=== PATIENT | female | born 1995 | race Caucasian/White ===

== ENCOUNTER 2024-02-03 00:06 | Inpatient (IN) | payer BC ==
[2024-02-03] MEDS ORDERED: Water For Irrigation,Sterile 1,000 ML Container IRR PRN (00:29)
[2024-02-03] MEDS ORDERED: Tranexamic Acid IN NACL,ISO-OS 1,000 MG in Premix Bag 1 BAG IV PRN (00:29)
[2024-02-03] MEDS ORDERED: Sodium Chloride 0.9% 2.5 ML Syringe FLUSH PRN (00:29)
[2024-02-03] MEDS ORDERED: Ondansetron 4 MG/2 ML SDV IVPUSH PRN (00:29)
[2024-02-03] MEDS ORDERED: Carboprost Tromethamine 250 MCG/1 mL Vial IM PRN (00:29)
[2024-02-03] MEDS ORDERED: Lidocaine 1% 50 ML MDV INJECT PRN (00:29)
[2024-02-03] MEDS ORDERED: Sodium Chloride 0.9% 10 ML Syringe FLUSH PRN (00:29)
[2024-02-03] MEDS ORDERED: Terbutaline 1 MG/ML SDV SUBCUT PRN (00:29)
[2024-02-03] MEDS ORDERED: Sodium Chloride 0.9% 20 ML SDV IV PRN (00:29)
[2024-02-03] MEDS ORDERED: Methylergonovine 0.2 MG/1 ML Amp IM PRN (00:29)
[2024-02-03] MEDS ORDERED: Misoprostol 200 MCG Tab PO PRN (00:29)
[2024-02-03] MEDS ORDERED: Butorphanol 2 MG/ML SDV IVPUSH PRN (00:29)
[2024-02-03] MEDS ORDERED: Oxytocin/0.9 % Sodium Chloride 30 UNIT/500 ML BAG IV SCH (00:30)
[2024-02-03] MEDS ORDERED: Misoprostol 25 MCG (1/4 of 100 MCG) Tab VAG PRN ×2 (01:00→04:00)
[2024-02-03] MEDS ORDERED: Misoprostol 25 MCG (1/4 of 100 MCG) Tab PO PRN (01:00)
[2024-02-03 01:14] LABS: HEMATOCRIT 38.2 % (37.0-47.0); HEMOGLOBIN 13.4 g/dL (12.0-16.0); MEAN CORPUSCULAR HEMOGLOBIN 32.2 pg (28.0-32.0); MEAN CORPUSCULAR HGB CONC 35.1 g/dL (32.0-36.0); MEAN CORPUSCULAR VOLUME 91.8 fL (83.0-99.0); MEAN PLATELET VOLUME 10.9 fL (9.4-12.3); PLATELET COUNT,PLT 207 K/uL (150-400); RED BLOOD CELL COUNT 4.16 M/uL (4.10-5.30)
[2024-02-03] MEDS ORDERED: Ropivacaine HCl/PF 400 MG in Premix Bag 1 BAG EPIDUR SCH (01:30)
[2024-02-03] MEDS ORDERED: dexmedeTOMIDine HCl 200 MCG/2 ML SDV EPIDUR SCH (01:30)
[2024-02-03] MEDS ORDERED: Phenylephrine HCl In 0.9% NaCl 1 MG/10 ML Syringe IVPUSH PRN (01:30)
[2024-02-03] MEDS ORDERED: ePHEDrine 50 MG/ML SDV IVPUSH PRN (01:30)
[2024-02-03] MEDS: Oxytocin/0.9 % Sodium Chloride 30 UNIT/500 ML BAG IV SCH (01:53)
[2024-02-03] MEDS ORDERED: oxyCODONE 5 MG Tab PO PRN (03:17)
[2024-02-03] MEDS: Ibuprofen 800 MG Tab PO PRN (03:51)
[2024-02-03] MEDS: Acetaminophen 500 MG Tab PO PRN (03:52)
[2024-02-03] MEDS: Witch Hazel Medicated Pads 40/Jar TOP PRN (03:53)
[2024-02-03] MEDS: Benzocaine/Menthol 20%-0.5% Spray 78 GM Cannister TOP PRN (03:53)
[2024-02-03] MEDS: Lanolin 100% Cream 7 GM Tube TOP PRN (03:54)
[2024-02-03] MEDS: Lactated Ringers 1,000 ML IV SCH (03:54)
[2024-02-03] MEDS: Docusate Sodium 100 MG Cap PO PRN (10:46)
[2024-02-03] MEDS: Ropivacaine HCl/PF 200 ML ONE (19:17)
[2024-02-03] MEDS: Phenylephrine HCl In 0.9% NaCl 1 MG/10 ML Syringe ONE (19:17)
[2024-02-03] MEDS: Bupivacaine 0.5% 10 ML SDV ONE (19:17)
[2024-02-03] MEDS: fentaNYL 100 MCG/2 ML SDV ONE (19:18)
[2024-02-03] MEDS: Oxytocin/0.9 % Sodium Chloride 30 UNIT/500 ML BAG ONE (19:18)
[2024-02-03] MEDS: Bupivacaine 0.25% 10 ML SDV ONE (19:18)
[2024-02-04 06:07] LABS: HEMATOCRIT 33.9 % (37.0-47.0); HEMOGLOBIN 11.5 g/dL (12.0-16.0)
== END 2024-02-04 12:30 | disposition home or self-care (01) | DRG 560 ==
LOC: MW.OBCHECK 00:06 → MW.OB 00:07 → MW.OBCHECK 00:08 → MW.OB 00:08 → OBSVTOIN 01:43 → MW.OB 05:19
PROVIDERS: ADMIT Obstetrics & Gynecology Obstetrics; ATTEND Obstetrics & Gynecology Obstetrics
PROC: 10E0XZZ Delivery of Products of Conception, External Approach (ICD-10-PCS; principal; 2024-02-03)
DX: O80 Encounter for full-term uncomplicated delivery (principal); Z37.0 Single live birth; Z3A.39 39 weeks gestation of pregnancy
CPT/HCPCS: 36415; 59025; 59409; 62322; 85014; 85018; 85027; 86592; 86850; 86900; 86901; A9270-GY; J2590; J2795; J3010; J3490; J7120